=== PATIENT | male | born 1950 | race Caucasian/White ===

== ENCOUNTER 2020-05-18 09:20 | Emergency (ER) | payer OTHER, SELFPAY ==
[2020-05-18 09:22] VITALS: BP 107/71; PULSE 90; RESP 18; TEMP 36.4; O2SAT 97; BMI 28.5
--- NOTE | 2020-05-18 09:22 | ECG_ITS ---
[facility] Test Date: 2020-05-18 Pat Name: Nelsy Gannon Department: Room: Gender: Male District Sales Representative: : 1950 Requested By: Koby Marte Order Number: [id number] Reading MD: CHRISTINE TUCKER Measurements Intervals [place] Rate: 91 P: [place]: QRS: 11 QRSD: 121 T: 192 QT: 362 QTc: 447 Interpretive Statements ATRIAL FIBRILLATION WITH ABERRANT CONDUCTION OR VENTRICULAR PREMATURE COMPLEXES POSSIBLE INFERIOR MYOCARDIAL INFARCTION , PROBABLY OLD [30 ms Q WAVE IN II/aVF] MODERATE T-WAVE ABNORMALITY, CONSIDER LATERAL ISCHEMIA [-0.1+ mV T WAVE IN I/aVL/V5/V6] No previous ECG available for comparison Electronically Signed On 05-18-2020 19:58:52 OUTGOING INSPECTOR by CHRISTINE TUCKER [id number]
[2020-05-18 09:30] VITALS: BP 107/71; PULSE 89; RESP 20; O2SAT 89
--- NOTE | 2020-05-18 09:49 | ED_ITS ---
HPI - Psych General: Chief Complaint: Psychiatric Symptoms Stated Complaint: MHE Time Seen by Provider: 05/18/20 09:22 History of Present Illness: HPI Narrative: 69-year-old male presents to the emergency room via EMS from [facility] intermediate. He is here due to CHF. Evidently he got very upset they would not give him anything to eat or drink he says. I suspect he is on a fluid restriction although I cannot find it in the notes. He does have oral candidiasis and is on nystatin. He says he was given ice cream for breakfast and wanted something else to drink. He is also asked for prune juice because he is constipated. He states he has some sores over the sacral area but no other pain anywhere. He became quite frustrated and vocalizes frustrations somewhere in the course of saying she made something that sounded to one of the staff like he was going to harm himself. He adamantly denies being history suicidal he states he just wants something to drink. He is quite operable and helpful in the emergency room. MD complaint: feels depressed Onset (ago): hour(s) Duration: constant History of same: No Relieving factors: none Exacerbating factors: none Associated psychiatric symptoms: depression Associated symptoms: Reports depression; Deny auditory hallucinations, visual hallucinations, delusions, homicidal ideation, suicidal ideation or racing thoughts Treatments prior to arrival: none Review of Systems Const: Denies: fever(s), chills, body aches, change in appetite, fatigue or malaise ENMT: Denies: throat pain, ear or mastoid pain, nasal discharge or nasal congestion Card: Denies: chest pain, edema, dyspnea on exertion or orthopnea Resp: Denies: dyspnea, productive cough or non-productive cough GI: Denies: abdominal pain, nausea, vomiting, hematemesis, coffee ground emesis, diarrhea, constipation, bloating, hematochezia or melena : Denies: flank pain, dysuria, urinary frequency or urinary urgency Psych: Reports: depression; Denies: visual hallucinations, auditory hallucinations, suicidal ideation or homicidal ideation [facility] PFSH: Medical History (Updated 05/18/20 @ 11:14 by Koby Mott DO) Congestive heart failure Diabetes mellitus type 2 in obese Physical Exam Const: COMMON NORMALS: no acute distress GENERAL APPEARANCE: cooperative and comfortable ORIENTATION/CONSCIOUSNESS: Yes awake, Yes oriented to person, Yes oriented to place and Yes oriented to time HENMT: COMMON NORMALS: normocephalic, atraumatic and hearing grossly normal bilaterally HEAD & SCALP: normocephalic and atraumatic Eye: COMMON NORMALS: Equal, round and reactive pupils present, EOMs intact bilaterally, conjunctivae normal and no scleral icterus CONJUNCTIVA: Yes conjunctivae normal PUPIL: Yes Equal, round and reactive pupils present Neck/C-Spine: COMMON NORMALS: full ROM, no lymphadenopathy, supple and no JVD Lymph: LYMPHATIC: no lymphadenopathy noted and no lymphedema noted Resp: COMMON NORMALS: normal respiratory effort, No retractions, No use of accessory muscles and clear to auscultation bilaterally AUSCULTATION: clear to auscultation bilaterally Cardio: COMMON NORMALS: no JVD, regular rate, regular rhythm and No murmurs present (Cardio) RATE: regular rate RHYTHM: regular rhythm GI: COMMON NORMALS: Soft to palpation and No hepatosplenomegaly present AUSCULTATION: Yes normoactive bowel sounds PALPATION: Yes Soft to palpation, No Tenderness to palpation present (GI), No Guarding due to palpation present (GI) and Yes No hepatosplenomegaly present Back/Pelvis: OTHER: Stage I pressure ulcer overlying the sacrum. Does not affect the full-thickness of the skin Extremity: NARRATIVE EXTREMITY EXAM: 1+ edema of the lower extremities. Neuro: SENSORIUM/ORIENTATION: Yes oriented to person, Yes oriented to place and Yes oriented to time Psych: THOUGHT CONTENT: No delusions MDM - Psych MDM Narrative: Medical decision making narrative: Patient is somewhat irritable but adamantly denies suicidal homicidal intent. Is not very happy with the care restrictions have been put him at the intermediate additionally he does point does not like being at the intermediate. His called when she was very upset with the patient because he is what she describes as mean and cantankerous and she wanted him to have a psychiatric evaluation anticipating that would take at least 1 week. I called and discussed with Dr. Sanford of not sure at this point that a psychiatric admission will be really helpful for the patient his issues are more personality based he is certainly not homicidal or suicidal I asked Dr. Sanford to consult he came and seen the patient in the emergency room and he agrees does not feel the patient is at risk to harm himself or others and recommends he be discharged back to the intermediate. See his consultation note. Suspect his elevated liver enzymes are secondary to his congestive heart failure follow-up through his primary care doctor Lab Data: Labs: Lab Results 05/18/20 05/18/20 05/18/20 Range/Units 09:58 09:58 10:17 WBC 8.8 (4.0-10.0) 10^3/ uL RBC 4.59 (4.1-5.3) 10^6/u L Hgb 13.2 (11.7-16.6) g/dL Hct 43.2 (42.0-52.0) % MCV 94.1 H (80-94) fL MCH 28.8 (28.0-34.0) pg MCHC 30.6 (30.0-36.0) g/dL RDW 17.3 H (12.1-15.1) % Plt Count 173 (130-400) 10^3/c mm MPV 10.5 H (7.4-10.4) fL Neut % (Auto) 80.8 % Lymph % (Auto) 11.7 % [place] % (Auto) 5.3 % Eos % (Auto) 0.9 % Baso % (Auto) 0.2 % Neut # (Auto) 7.11 (1.8-7.7) 10^3/u L Lymph # (Auto) 1.0 (0.8-4.8) 10^3/u L [place] # (Auto) 0.5 (0.2-0.9) 10^3/u L Eos # (Auto) 0.1 (0.0-0.8) 10^3/u L Baso # (Auto) 0.0 (0.0-0.1) 10^3/u L Nucleated RBC % (a uto) 0 % Nucleated RBCs # 0.0 /100WBC Sodium (136-145) mmol/L Potassium (3.5-5.1) mmol/L Chloride (98-107) mmol/L Carbon Dioxide (22-29) mmol/L Anion Gap (5-19) BUN (8-23) mg/dL Creatinine (0.7-1.2) mg/dL GFR Calculation Glucose (65-115) mg/dL Calculated Osmolal ity (285-295) mOsm/k g Calcium (8.5-10.5) mg/dL Total Bilirubin (0.15-1.2) mg/dL AST (0-40) U/L ALT (0-41) U/L Alkaline Phosphata se (40-130) IU/L Total Protein (6.6-8.7) g/dL Albumin (3.5-5.2) g/dL Globulin (1.3-4.6) g/dL Urine Color Yellow (Yellow) Urine Appearance Clear (CLEAR) Urine pH 5.0 (5-7) Ur Specific Gravit y 1.000 L (1.005-1.030) Urine Protein Neg (Negative) Urine Glucose (UA) 4+ H (Normal) Urine Ketones Negative (Negative) Urine Blood Neg (Negative) Urine Nitrate Negative (Negative) Urine Bilirubin Neg (Negative) Urine Urobilinogen 1 H (Negative) mg/dL Ur Leukocyte Wendy ase Negative (Negative) Salicylates (3-10) mg/dL Urine Opiates Scre en Negative (Negative) ng/mL Acetaminophen (10-30) ug/mL Ur Barbiturates Sc reen Negative (Negative) ng/mL Ur Phencyclidine S crn Negative (Negative) ng/mL Ur Amphetamines Sc reen Negative (Negative) ng/mL U Benzodiazepines Scrn Negative (Negative) ng/mL Urine Cocaine Scre en Negative (Negative) ng/mL U Marijuana (THC) Screen Negative (Negative) ng/mL Ethyl Alcohol (0-10) mg/dL 11/27/20 Range/Units 10:17 WBC (4.0-10.0) 10^3/ uL RBC (4.1-5.3) 10^6/u L Hgb (11.7-16.6) g/dL Hct (42.0-52.0) % MCV (80-94) fL MCH (28.0-34.0) pg MCHC (30.0-36.0) g/dL RDW (12.1-15.1) % Plt Count (130-400) 10^3/c mm MPV (7.4-10.4) fL Neut % (Auto) % Lymph % (Auto) % [place] % (Auto) % Eos % (Auto) % Baso % (Auto) % Neut # (Auto) (1.8-7.7) 10^3/u L Lymph # (Auto) (0.8-4.8) 10^3/u L [place] # (Auto) (0.2-0.9) 10^3/u L Eos # (Auto) (0.0-0.8) 10^3/u L Baso # (Auto) (0.0-0.1) 10^3/u L Nucleated RBC % (a uto) % Nucleated RBCs # /100WBC Sodium 137 (136-145) mmol/L Potassium 3.6 (3.5-5.1) mmol/L Chloride 103 (98-107) mmol/L Carbon Dioxide 24 (22-29) mmol/L Anion Gap 13.6 (5-19) BUN 27 H (8-23) mg/dL Creatinine 0.7 (0.7-1.2) mg/dL GFR Calculation Not Reportable Glucose 272 H (65-115) mg/dL Calculated Osmolal ity 299 H (285-295) mOsm/k g Calcium 7.8 L (8.5-10.5) mg/dL Total Bilirubin 1.2 (0.15-1.2) mg/dL AST 47 H (0-40) U/L ALT 100 H (0-41) U/L Alkaline Phosphata se 456 H (40-130) IU/L Total Protein 6.0 L (6.6-8.7) g/dL Albumin 3.0 L (3.5-5.2) g/dL Globulin 3.0 (1.3-4.6) g/dL Urine Color (Yellow) Urine Appearance (CLEAR) Urine pH (5-7) Ur Specific Gravit y (1.005-1.030) Urine Protein (Negative) Urine Glucose (UA) (Normal) Urine Ketones (Negative) Urine Blood (Negative) Urine Nitrate (Negative) Urine Bilirubin (Negative) Urine Urobilinogen (Negative) mg/dL Ur Leukocyte Wendy ase (Negative) Salicylates < 0.3 L (3-10) mg/dL Urine Opiates Scre en (Negative) ng/mL Acetaminophen < 5.0 L (10-30) ug/mL Ur Barbiturates Sc reen (Negative) ng/mL Ur Phencyclidine S crn (Negative) ng/mL Ur Amphetamines Sc reen (Negative) ng/mL U Benzodiazepines Scrn (Negative) ng/mL Urine Cocaine Scre en (Negative) ng/mL U Marijuana (THC) Screen (Negative) ng/mL Ethyl Alcohol < 10 (0-10) mg/dL Discharge Plan Discharge Patient Disposition: Home Clinical Impression: Congestive heart failure, Diabetes mellitus type 2 in obese, Borderline personality disorder Condition: Stable Prescriptions: No Action Anbesol (benzocaine) 10 % Gel 1 applic MUCOUS MEMBRANE Q4H RF: 0 atorvastatin 40 mg Tablet 40 mg PO BEDTIME RF: 0 nystatin 100,000 unit/mL Suspension 5 ml PO Q6H RF: 0 Tylenol 325 mg Tablet 650 mg PO Q6H PRN (Reason: Pain) RF: 0 bumetanide 2 mg Tablet 2 mg PO BID RF: 0 glipizide 10 mg Tablet 10 mg PO BID RF: 0 Plavix 75 mg Tablet 75 mg PO DAILY RF: 0 Milk of Magnesia 400 mg/5 mL Suspension 30 ml PO DAILY PRN (Reason: Constipation) RF: 0 Dulcolax (bisacodyl) 10 mg Suppository 10 mg AL DAILY PRN (Reason: Constipation) RF: 0 nystatin 100,000 unit/gram Cream 1 applic TOPICAL BID RF: 0 Fleet Enema 19-7 gram/118 mL Enema 118 ml AL DAILY PRN (Reason: Constipation) RF: 0 Nitrostat 0.4 mg Tablet, Sublingual 0.4 mg SUBLINGUAL Q5M PRN (Reason: Chest Pain) RF: 0 docusate sodium 100 mg Capsule 100 mg PO DAILY RF: 0 omeprazole 20 mg Capsule,Delayed Release(Dr/Ec) 20 mg PO QAM RF: 0 Dulcolax (bisacodyl) 5 mg Tablet,Delayed Release (Dr/Ec) 10 mg PO DAILY PRN (Reason: Constipation) RF: 0 digoxin 125 mcg (0.125 mg) Tablet 125 mcg PO DAILY RF: 0 metoprolol tartrate 25 mg Tablet 25 mg PO BID RF: 0 Eliquis 5 mg Tablet 5 mg PO BID RF: 0 potassium chloride 20 mEq Tablet Extended Release 20 meq PO DAILY RF: 0 Jardiance 25 mg Tablet 25 mg PO QAM RF: 0 Discharge Orders: Discharge Order (Routine); Ordered 05/18/20 Ordered By: Koby Mott Referrals: [facility], [Primary Care Provider] - Coding Level of Care Code ED Wharfmaster for Chg Fwd Exam Comprehensive
[2020-05-18 10:17] LABS: Add Urine Microscopic? NO
[2020-05-18 10:25] LABS: Basophils % 0.2 %; Eosinophils # 0.1 10^3/uL (0.0-0.8); Eosinophils % 0.9 %; Hematocrit 43.2 % (42.0-52.0); Hemoglobin 13.2 g/dL (11.7-16.6); Lymphocytes % 11.7 %; Mean Corpuscular HGB Conc 30.6 g/dL (30.0-36.0); Mean Corpuscular Hemoglobin 28.8 pg (28.0-34.0); Mean Corpuscular Volume 94.1 fL (80-94); Mean Platelet Volume 10.5 fL (7.4-10.4); Monocytes # 0.5 10^3/uL (0.2-0.9); Monocytes % 5.3 %; Neutrophils # 7.11 10^3/uL (1.8-7.7); Neutrophils % 80.8 %; Nucleated Red Blood Cells % 0 %; Platelet Count 173 10^3/cmm (130-400); Red Blood Count 4.59 10^6/uL (4.1-5.3); Red Cell Distribution Width 17.3 % (12.1-15.1); White Blood Count 8.8 10^3/uL (4.0-10.0)
[2020-05-18 10:28] LABS: Bilirubin Urine Neg (Negative); Blood Urine Neg (Negative); Glucose Urine UA 4+ (Normal); Ketones Urine Negative (Negative); Leukocyte Esterase Urine Negative (Negative); Nitrate Urine Negative (Negative); Protein Urine Neg (Negative); Urine Appearance Clear (CLEAR); Urine Color Yellow (Yellow); Urobilinogen Urine 1 mg/dL (Negative)
[2020-05-18 10:40] LABS: Amphetamines Screen Urine Negative (Negative); Barbiturates Screen Urine Negative (Negative); Benzodiazepines Screen Urine Negative (Negative); Cocaine Screen Urine Negative (Negative); Opiate Screen Urine Negative (Negative); PCP Screen Urine Negative (Negative); THC Screen Urine Negative (Negative)
[2020-05-18 10:43] LABS: Alanine Aminotransferase 100 U/L (0-41); Alkaline Phosphatase 456 IU/L (40-130); Anion Gap 13.6 (5-19); Aspartate Amino Transferase 47 U/L (0-40); Blood Urea Nitrogen 27 mg/dL (8-23); Calcium 7.8 mg/dL (8.5-10.5); Carbon Dioxide 24 mmol/L (22-29); Chloride 103 mmol/L (98-107); Glucose 272 mg/dL (65-115); Osmolality Calculated 299 mOsm/kg (285-295); Potassium 3.6 mmol/L (3.5-5.1); Sodium 137 mmol/L (136-145); Total Bilirubin 1.2 mg/dL (0.15-1.2)
[2020-05-18 10:44] LABS: Acetaminophen < 5.0 ug/mL (10-30); Alcohol Level < 10 mg/dL (0-10); Salicylate < 0.3 mg/dL (3-10)
[2020-05-18 10:46] VITALS: BP 131/77; PULSE 91; RESP 18; O2SAT 95
--- NOTE | 2020-05-18 11:13 | PC.NURSE ---
Given water, milk and sandwich
--- NOTE | 2020-05-18 11:22 | PM.PSYCN ---
Providers/Reason for Consult Consulting Physican/Specialty*: Psychiatry - Juan Magaña MD Reason for Consult*: Assess for imminent risk Primary Care Provider: SELENE MANZANO Psych Consult HPI History of Present Illness Nelsy Gannon is a 69 year old male was requested to be seen regarding assessment for whether the patient is an imminent risk to self or others. The patient provides spontaneously information consistent with that described in the ER physician note below. ER physician note: HPI Narrative: 69-year-old male presents to the emergency room via EMS from [facility]. He is here due to CHF. Evidently he got very upset they would not give him anything to eat or drink he says. I suspect he is on a fluid restriction although I cannot find it in the notes. He does have oral candidiasis and is on nystatin. He says he was given ice cream for breakfast and wanted something else to drink. He is also asked for prune juice because he is constipated. He states he has some sores over the sacral area but no other pain anywhere. He became quite frustrated and vocalizes frustrations somewhere in the course of saying she made something that sounded to one of the staff like he was going to harm himself. He adamantly denies being history suicidal he states he just wants something to drink. He is quite operable and helpful in the emergency room. Staff report that the patient's called in and stated that she felt that the patient needed a psychiatric evaluation because he is demanding, self-centered, and intolerant. He has no patience. However at no time did she say he was an imminent risk to self, report self-injurious behavior, or report threats to harm her. On interview, the patient steadfastly denies that he has ever had suicidal ideations. He said that he did report that he was feeling suicidal to the [facility] staff to try and get them to provide him services that he felt he was entitled to but not receiving. He states that he has never attempted suicide before. He has never engaged in self-injurious behavior. He has never been hospitalized for mental health reasons. He denies being depressed. That being said, he does display character traits consistent with those described by his . He eventually is able to acknowledge that he is very frustrated with his medical status. He is unwilling to accept limitations of his age and medical status. He wants to be healthy but it is unclear whether he is willing to engage in the therapeutic activities necessary to optimize his impaired health at this time. PFSH NPU PFSH: Medical History (Updated 05/18/20 @ 11:14 by Koby Mott DO) Congestive heart failure Diabetes mellitus type 2 in obese Mental Status Exam MSE Comments: Discharge Mental Status Exam: The patient is encountered in room 8 in the emergency room. He is laying on his right side because he says that his doctors told him that he should not lay flat or sit on his sacrum. He describes his reasons for being in the [facility] as those of having COPD. His home treatment did not work and his doctor told him that he could get better help in the [facility]. He expects to be there about a month. He is believed to be a reliable informant as the information he provides is internally consistent and consistent with that in the chart. Appearance: hygiene is good; no gross neurological deficits., gait is unremarkable; AIMS=0 Speech: Speech is of normal rate and rhythm and easily understood. Thought processes: Thought processes are abstract. Judgment is adequate for safety. Associations: intact Psychotic processes: There is no indication of guarding or paranoia. There is no attention to the internal stimuli. Auditory and visual hallucinations are denied. Judgment: Insight is poor. Problem solving skills are adequate for safety. Orientation: The patient is oriented to person, place time and situation. Memory: no deficits noted in immediate, intermediate, or remote spheres. Attention: The patient is alert and interpersonally engaged. Language: Verbalizations are coherent. Fund of knowledge: Fund of knowledge is adequate. Affect/Mood: Affect is consistent with a depressed mood. denied suicidal ideation Affective range is appropriate. Psychosis: perception unimpaired except through cognitive distortion; reality testing intact. Vitals/I&O/Wt Last Vital Signs Temp 97.5 F L 05/18/20 09:22 Pulse 91 05/18/20 10:46 Resp 18 05/18/20 10:46 BP 131/77 05/18/20 10:46 Pulse Ox 95 05/18/20 10:46 Weight last 48 hrs Weight 85.275 kg A&P Additional A&P Information Nelsy Gannon is a 69-year-old man who finds himself faced with the debilitating effects of aging and progressive medical conditions. He describes himself as someone who is accustomed to having his needs met and being able to overcome obstacles of through sheer willpower. He tells a story that he is required to be in a [facility] because he was unable to participate in the therapeutic interventions for his COPD. Details are unclear and it is not unknown whether that is an accurate statement. However does indicate that he does not except responsibility for his current situation. As such, he feels entitled to make demands on caregivers. This is amplified by his symptoms of depression and the result is a person who is likely difficult to manage on the medical floor. Medication intervention at this time is not indicated. He is not an imminent danger to self or others and does not require psychiatric hospitalization. Attestations NPU Medical Necessity Statement*: Further hospital care is at the discretion of the physician of record. Coding Level of Care Code Acute Acid Purification Equipment Operator for Eric Lynch
[2020-05-18 12:11] VITALS: BP 130/71; PULSE 67; RESP 18; TEMP 37.2; O2SAT 94
== END 2020-05-18 12:20 | disposition home or self-care (01) ==
PROVIDERS: Emergency Provider Family Medicine
DX: F60.3 Borderline personality disorder (principal); E11.9 Type 2 diabetes mellitus without complications; I50.9 Heart failure, unspecified; Z79.02 Long term (current) use of antithrombotics/antiplatelets; Z79.01 Long term (current) use of anticoagulants; Z79.899 Other long term (current) drug therapy
CPT/HCPCS: 12345; 80053; 80306; 80307; 81003; 85025; 93005; 99284